=== PATIENT | female | born 1955 | race Native Hawaiian/Other Pacific Islander ===

== ENCOUNTER 2021-05-29 09:46 | Outpatient (CLI) | payer OTHER | END 2021-05-29 16:41 | disposition home or self-care (01) | LOC: RAD 09:46 | PROVIDERS: ATTEND Nurse Practitioner Family | DX: M25.552 Pain in left hip (principal); M79.89 Other specified soft tissue disorders ==

== ENCOUNTER 2022-02-11 12:35 | Emergency (ER) | payer OTHER ==
[~2022-02-11] VITALS: Ht 154.9 cm; Wt 90.7 kg
[2022-02-11 12:46] VITALS: TEMP 96.4
[2022-02-11 13:10] LABS: PLATELET COUNT 233 K/uL (152-353)
[2022-02-11 13:18] LABS: POTASSIUM 3.9 mmol/L (3.6-5.2)
[2022-02-11 13:25] LABS: PARTIAL THROMBOPLASTIN TIME 24.5 SECONDS (24.5-33.6)
[2022-02-11 13:44] VITALS: BP 132/78
== END 2022-02-11 13:53 | disposition home or self-care (01) ==
LOC: ED 12:35
PROVIDERS: Emergency Medicine
DX: R20.2 Paresthesia of skin (principal); F41.8 Other specified anxiety disorders; I25.10 Atherosclerotic heart disease of native coronary artery without angina pectoris
CPT/HCPCS: 80048; 85027; 85379; 85610; 85730; 99283